=== PATIENT | female | born 1970 | race Caucasian/White ===

== ENCOUNTER 2016-12-20 09:57 | Emergency (ER) | payer SELFPAY ==
[~2016-12-20] VITALS: Ht 152.4 cm; Wt 91.0 kg
[2016-12-20 09:59] VITALS: BP_SYST 171; BP_SYST 180; BP_DIAS 86; BP_DIAS 94; PULSE 86; RESP 15; TEMP 98.4; O2SAT 98
[2016-12-20] MEDS ORDERED: SODIUM CHLOR 0.9% 1000 ML INJ 1,000 ML IV SCH (10:45)
[2016-12-20] MEDS ORDERED: SODIUM CHLORIDE 0.9% FLUSH 10 ML FLUSH IVF PRN (10:45)
[2016-12-20 11:02] LABS: AUTOMATED NEUTROPHIL # 7.4 TH/MM3 (1.8-7.7); BASOPHIL % 0.4 % (0.0-2.0); EOSINOPHIL # 0.1 TH/MM3 (0-0.4); HEMATOCRIT 38.4 % (35.0-46.0); HEMO FLAGS DIFF FINAL; LYMPH % 15.4 % (9.0-44.0); LYMPHOCYTE # 1.5 TH/MM3 (1.0-4.8); MEAN CELL VOLUME 103.2 FL (80.0-100.0); MEAN CORPUSCULAR HEMOGLOBIN 35.9 PG (27.0-34.0); MEAN CORPUSCULAR HGB CONC 34.8 % (32.0-36.0); MONO % 6.9 % (0.0-8.0); NEUT % 76.3 % (16.0-70.0); PLATELET COUNT 242 TH/MM3 (150-450); RED BLOOD COUNT 3.72 MIL/MM3 (4.00-5.30); RED CELL DISTRIBUTION WIDTH 13.5 % (11.6-17.2); WHITE BLOOD COUNT 9.8 TH/MM3 (4.0-11.0)
--- NOTE | 2016-12-20 11:19 | RADRPT ---
EXAM DATE/TIME: 12/20/2016 11:01 [place] COMPARISON: No previous studies available for comparison. INDICATIONS : Left sided facial droop and arm numbness. RADIATION DOSE: 33.54 CTDIvol (mGy) MEDICAL HISTORY : Moia-Moia disease. SURGICAL HISTORY : Two brain surgeries. ENCOUNTER: Initial ACUITY: 1 day PAIN SCALE: 5/10 LOCATION: cranial TECHNIQUE: Multiple contiguous axial images were obtained of the head. Using automated exposure control and adj ustment of the mA and/or kV according to patient size, radiation dose was kept as low as reasonably a chievable to obtain optimal diagnostic quality images. DICOM format image data is available electro nically for review and comparison. FINDINGS: CEREBRUM: The ventricles are normal for age. No evidence of midline shift, mass lesion, hemorrhage or acute in farction. No extra-axial fluid collections are seen. POSTERIOR FOSSA: The cerebellum and brainstem are intact. The 4th ventricle is midline. The cerebellopontine angle i s unremarkable. EXTRACRANIAL: The visualized portion of the orbits is intact. SKULL: There are postsurgical changes in the left parietal bone. The calvarium is otherwise intact. CONCLUSION: 1. Post surgical changes in the skull. 2. No acute intracranial abnormality. Wayne Glasgow MD on December 20, 2016 at 11:16 Board Certified Radiologist. This report was verified electronically.
[2016-12-20 11:24] LABS: ALT (GPT) 18 U/L (10-53); ANION GAP 8 MEQ/L (5-15); AST (GOT) 11 U/L (15-37); BICARBONATE 24.4 MEQ/L (21.0-32.0); BLOOD UREA NITROGEN 6 MG/DL (7-18); CHLORIDE 108 MEQ/L (98-107); GLOMERULAR FILTRATION RATE 86 ML/MIN (>89); POTASSIUM 3.8 MEQ/L (3.5-5.1); SODIUM (NA) 140 MEQ/L (136-145)
[2016-12-20 11:27] LABS: ALKALINE PHOSPHATASE 99 U/L (45-117); TOTAL BILIRUBIN ADULT 0.7 MG/DL (0.2-1.0)
--- NOTE | 2016-12-20 13:25 | PD ---
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 She says at that time she checked her blood pressure and she had a systolic blood pressure of 100. She did not take her blood pressure medications this morning and she came to the emergency department. She says that her symptoms have improved slightly in the emergency department but not completely. She still feels weak and tingling in the left arm. She has no difficulty speaking or walking. She says that she's had problems on this left side of the past. She's had several neurosurgeries and she's been followed prior to today at the [facility] by Dr. Morataya. [facility] Past Medical History Narrative Medical izquierdo izquierdo disease Social History Tobacco Use: Yes Allergies-Medications (Allergen,Severity, Reaction): Coded Allergies: ropinirole (Verified Allergy, Severe, throat closes, 12/20/16) bacitracin (Verified Allergy, Intermediate, rashes, 12/20/16) camphor (Verified Allergy, Intermediate, blistering, 12/20/16) neomycin (Verified Allergy, Intermediate, rashes, 12/20/16) polymyxin B (Verified Allergy, Intermediate, rashes, 12/20/16) Review of Systems Except as stated in HPI: all other systems reviewed are Neg Physical Exam Narrative GENERAL:Well appearing, no acute distress SKIN: Focused skin assessment warm and dry. HEAD: Atraumatic. Normocephalic. EYES: Pupils equal and round. No injection or drainage. ENT: Moist mucous membranes NECK: Trachea midline. CARDIOVASCULAR: Regular rate and rhythm. No murmur appreciated. RESPIRATORY: Clear to auscultation. Breath sounds equal bilaterally. GASTROINTESTINAL: Abdomen soft, non-tender, nondistended. MUSCULOSKELETAL: No obvious deformities. NEUROLOGICAL: Awake and alert. No obvious cranial nerve deficits. 4+/5 strength in the left upper and left lower extremities with decreased sensation to light touch in the left upper arm. No ataxia, no dysarthria or aphasia. PSYCHIATRIC: Appropriate mood and affect; insight and judgment normal. Data Data Last Documented VS Vital Signs Date Time Temp Pulse Resp B/P (MAP) Pulse Ox O2 Delivery O2 Flow Rate FiO2 12/20/16 13:47 97.7 71 16 157/84 (108) 100 Room Air Orders Orders Electrocardiogram (12/20/16 10:40) Complete Blood Count With Diff (12/20/16 10:40) Comprehensive Metabolic Panel (12/20/16 10:40) Urinalysis - C+S If Indicated (12/20/16 10:40) Ct Brain W/O Iv Contrast(Rout) (12/20/16 10:40) Ecg Monitoring (12/20/16 10:40) Iv Access Insert/Monitor (12/20/16 10:40) Oximetry (12/20/16 10:40) Sodium Chloride 0.9% Flush (Ns Flush) (12/20/16 10:45) Sodium Chlor 0.9% 1000 Ml Inj (Ns 1000 M (12/20/16 10:45) Radiology Film Requests (12/20/16 ) Labs Laboratory Tests Test 12/20/16 10:50 White Blood Count 9.8 TH/MM3 Red Blood Count 3.72 MIL/MM3 Hemoglobin 13.4 GM/DL Hematocrit 38.4 % Mean Corpuscular Volume 103.2 FL Mean Corpuscular Hemoglobin 35.9 PG Mean Corpuscular Hemoglobin Concent 34.8 % Red Cell Distribution Width 13.5 % Platelet Count 242 TH/MM3 Mean Platelet Volume 6.8 FL Neutrophils (%) (Auto) 76.3 % Lymphocytes (%) (Auto) 15.4 % Monocytes (%) (Auto) 6.9 % Eosinophils (%) (Auto) 1.0 % Basophils (%) (Auto) 0.4 % Neutrophils # (Auto) 7.4 TH/MM3 Lymphocytes # (Auto) 1.5 TH/MM3 Monocytes # (Auto) 0.7 TH/MM3 Eosinophils # (Auto) 0.1 TH/MM3 Basophils # (Auto) 0.0 TH/MM3 CBC Comment DIFF FINAL Differential Comment Blood Urea Nitrogen 6 MG/DL Creatinine 0.73 MG/DL Random Glucose 94 MG/DL Total Protein 6.3 GM/DL Albumin 3.3 GM/DL Calcium Level 8.0 MG/DL Alkaline Phosphatase 99 U/L Aspartate Amino Transf (AST/SGOT) 11 U/L Alanine Aminotransferase (ALT/SGPT) 18 U/L Total Bilirubin 0.7 MG/DL Sodium Level 140 MEQ/L Potassium Level 3.8 MEQ/L Chloride Level 108 MEQ/L Carbon Dioxide Level 24.4 MEQ/L Anion Gap 8 MEQ/L Estimat Glomerular Filtration Rate 86 ML/MIN MDM Medical Decision Making Medical Screen Exam Complete: Yes Emergency Medical Condition: Yes Interpretation(s) afebrile, hypertensive no leukocytosis macrocytosis electrolytes within normal limits Differential Diagnosis Ischemic stroke, hemorrhagic stroke, seizure, tumor Narrative Course This is a 46-year-old female who has a history of moyamoya disease who presents to the emergency department with left-sided weakness and numbness that started at 7 AM this morning. Pt's systolic blood pressure at that time was 100 which is low for her, and she tries to maintain in the 140s -160s. Currently in the emergency department her blood pressure is 170 systolic. I did discuss this case with our on-call neurologist. Given the patient's history of moyamoya disease TPA is not indicated. Her symptoms are likely due to hypoperfusion in the setting of a low blood pressure. She is placed in a monitor and an IV was established. Dry CT was obtained and labs were obtained which were reassuring. I had a long conversation with the patient's neurosurgeon at the [facility] Dr. Morataya. Dr. 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 In 2016 she had an indirect bypass on her left vasculature. She was more symptomatic from her right sided disease in her left. 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 Patient likely requires MRI to evaluate her current ischemic burden and angiography with the consideration for intervention. I spoke to Dr. Pisano our neurosurgeon on-call who recommended that the patient be transferred to [facility]. I spoke to Dr. Zuñiga on-call for neurosurgery who accepted the patient does [facility] and I spoke to Dr. Noriega who agreed to see the patient in the [facility] emergency department. Critical Care Narrative Aggregate critical care time was 50 minutes. Time to perform other separately billable procedures was not included in the critical care time. My time did not include minutes spent treating any other patients simultaneously or on activities that did not directly contribute to the patient's treatment. The services I provided to this patient were to treat and/or prevent clinically significant deterioration that could result in: disability I provided critical care services requiring my management, as noted below: Chart data review, documentation time, medication orders and management, vital sign assessments/reviewing monitor data, ordering and reviewing lab tests, ordering and interpreting/reviewing x-rays and diagnostic studies, care of the patient and discussion of the patient with the admitting physicians. Diagnosis Primary Impression: Izquierdo izquierdo disease Disposition: 70 TRANSFER TO OTHER FACILITY Condition: Stable Riddhi Olmedo MD Dec 20, 2016 13:25
[2016-12-20 13:47] VITALS: BP 157/84; PULSE 71; RESP 16; TEMP 97.7; O2SAT 100
--- NOTE | 2016-12-21 21:57 | EKG ---
Date Performed: 12/20/2016 Time Performed: 11:23:29 PTAGE: 46 years EKG: Sinus rhythm LOW QRS VOLTAGE IN PRECORDIAL LEADS BORDERLINE ECG NO PREVIOUS TRACING DOCTOR: Nils Santiago Interpretating Date/Time 12/21/2016 21:57:27
== END 2016-12-20 15:38 | disposition short-term general hospital (02) ==
LOC: NEPC 09:57
DX: I67.5 Moyamoya disease (principal); G81.94 Hemiplegia, unspecified affecting left nondominant side
CPT/HCPCS: 70450; 80053; 85025; 93005; 96360; 99291; J7030